=== PATIENT | female | born 1995 | race African-American/Black ===

== ENCOUNTER 2020-12-22 16:47 | Emergency (ER) | payer OTHER ==
[~2020-12-22] VITALS: Ht 175.3 cm; Wt 80.7 kg
[2020-12-22 16:47] VITALS: BP 116/72
[~2020-12-22 16:47] MED LIST: TYLENOL W/CODEI1 TA2 PO
[2020-12-22] MEDS ORDERED: ERYTHROMYCIN E3.5 G2 OPHTHALMIC (17:15)
== END 2020-12-22 17:19 | disposition home or self-care (01) ==
LOC: ER 16:47
DX: S05.01XA Injury of conjunctiva and corneal abrasion without foreign body, right eye, initial encounter (principal); X99.0XXA Assault by sharp glass, initial encounter; Y93.89 Activity, other specified; Y92.89 Other specified places as the place of occurrence of the external cause; Y99.8 Other external cause status